=== PATIENT | female | born 1975 | race Caucasian/White ===

== ENCOUNTER 2022-09-21 07:43 | Outpatient (CLI) | payer OTHER, SELFPAY | END 2022-09-21 07:44 | disposition home or self-care (01) | LOC: ULT 07:43 | PROVIDERS: ATTEND Family Medicine | DX: N18.9 Chronic kidney disease, unspecified (principal); R80.9 Proteinuria, unspecified | CPT/HCPCS: 76770 ==

== ENCOUNTER 2022-10-17 07:55 | Outpatient (CLI) | payer OTHER | END 2022-10-17 07:56 | disposition home or self-care (01) | LOC: ULT 07:55 | PROVIDERS: ATTEND Nurse Practitioner Family | DX: R59.0 Localized enlarged lymph nodes (principal) | CPT/HCPCS: 76999 ==

== ENCOUNTER 2022-12-28 08:12 | Outpatient (CLI) | payer OTHER | END 2022-12-28 08:13 | disposition home or self-care (01) | LOC: BICMAMMO 08:12 | PROVIDERS: ATTEND Nurse Practitioner Family | DX: N64.89 Other specified disorders of breast (principal) | CPT/HCPCS: G0279 ==

== ENCOUNTER 2023-05-24 13:23 | Emergency (ER) | payer OTHER ==
[2023-05-24] MEDS ORDERED: Proparacaine 0.5% Opth 15 ML BOT ONE (14:59)
[2023-05-24] MEDS ORDERED: Fluorescein Opthalmic Strip ONE (14:59)
== END 2023-05-24 19:41 | disposition short-term general hospital (02) ==
LOC: ERS 13:23
DX: H33.051 Total retinal detachment, right eye (principal); I13.2 Hypertensive heart and chronic kidney disease with heart failure and with stage 5 chronic kidney disease, or end stage renal disease; I50.9 Heart failure, unspecified; N18.6 End stage renal disease; K21.9 Gastro-esophageal reflux disease without esophagitis; Z87.891 Personal history of nicotine dependence; Z79.899 Other long term (current) drug therapy
CPT/HCPCS: 70450